=== PATIENT | male | born 1975 ===

== ENCOUNTER 2017-08-29 12:26 | Emergency (ER) | payer SELFPAY ==
[2017-08-29 12:36] VITALS: RESP 18
--- NOTE | 2017-08-29 14:07 | ED PDOC ---
HPI: Psych/Substance Abuse Time Seen by Provider: 08/29/17 13:01 Chief Complaint (Nursing): Alcohol Ingestion Chief Complaint (Provider): Alcohol Ingestion ED Caveat: Intoxicated History Per: Patient History/Exam Limitations: intoxication Current Symptoms Are (Timing): Still Present Modifying Factor(s): Alcohol Involuntary Hold By: None Additional History Per: EMS Additional Complaint(s): 44 y/o male brought in by EMS for alcohol intoxication. On arrival patient is a poor historian and is not responding to any questions. No signs of injury or trauma. PMD: provider TBD Past Medical History Reviewed: Historical Data, Nursing Documentation, Vital Signs, Unable To Obtain Vital Signs: Last Vital Signs Temp 98.4 F 08/29/17 12:33 Pulse 84 08/29/17 12:33 Resp 18 08/29/17 12:33 BP 109/70 08/29/17 12:33 Pulse Ox 96 08/29/17 12:33 - Family History Family History: States: No Known Family Hx - Allergies Allergies/Adverse Reactions: Allergies Allergy/AdvReac Type Severity Reaction Status Date / Time Unobtainable Allergy Verified 08/29/17 12:33 Review of Systems Review Of Systems: ROS cannot be obtained secondary to pt's inabilty to answer questions. Physical Exam - Reviewed Nursing Documentation Reviewed: Yes Vital Signs Reviewed: Yes - Physical Exam Appears: Positive for: No Acute Distress Head Exam: Positive for: ATRAUMATIC, NORMAL INSPECTION, NORMOCEPHALIC Skin: Positive for: Normal Color. Negative for: Rash Eye Exam: Positive for: Normal appearance Neck: Positive for: Normal, Supple Cardiovascular/Chest: Positive for: Regular Rate, Rhythm. Negative for: Murmur Respiratory: Positive for: Normal Breath Sounds. Negative for: Accessory Muscle Use, Respiratory Distress Pulses-Radial (L): 2+ Pulses-Radial (R): 2+ Neurologic/Psych: Positive for: Other (Patient is arousable only to painful stimuli) - ECG O2 Sat by Pulse Oximetry: 96 (RA) Pulse Ox Interpretation: Normal - Progress ED Course And Treament: patient re-evaluated at 18:00. Sleeping in ED. Re-evaluated at 23:23pm Patient answering questions. States he drank heavily today b/c his is out of town. Denies any injury. Medical Decision Making Medical Decision Making: Impression: Alcohol intoxication Time: 13:05 Plan: --Accucheck --Alcohol serum --Pending clinical sobriety Labs reviewed: Alcohol level is 433 Scribe Attestation: Documented by Maddy Fontenot, acting as a scribe for Debra Pelaez PA-C Provider Scribe Attestation: All medical record entries made by the Scribe were at my direction and personally dictated by me. I have reviewed the chart and agree that the record accurately reflects my personal performance of the history, physical exam, medical decision making, and the department course for this patient. I have also personally directed, reviewed, and agree with the discharge instructions and disposition. Disposition - Clinical Impression Clinical Impression: Alcohol ingestion - Patient ED Disposition Is Patient to be Admitted: No - Disposition Referrals: [facility] [Outside] Disposition: Routine/Home Disposition Time: 23:24 Condition: FAIR Instructions: Alcohol Use - When Is Drinking a Problem?, Food Poisoning (DC) Forms: [employer] (Yi) Print Language: GUAMANIAN
[2017-08-29 23:37] VITALS: BP 138/89; PULSE 81; TEMP 98; O2SAT 100
== END 2017-08-29 23:37 | disposition home or self-care (01) ==
LOC: EDBD 12:26 → H.ER 12:26
DX: F10.129 Alcohol abuse with intoxication, unspecified (principal); Y90.8 Blood alcohol level of 240 mg/100 ml or more
CPT/HCPCS: 82948; 99284; G0480